=== PATIENT | female | born 1990 | race African-American/Black ===

== ENCOUNTER 2020-03-11 15:53 | Emergency (ER) | payer MEDICAID ==
[~2020-03-11] VITALS: Ht 165.1 cm; Wt 83.0 kg
[2020-03-11 16:01] VITALS: BP 107/69
--- NOTE | 2020-03-11 16:05 | NUR ---
urine cup handed to pt for sample
--- NOTE | 2020-03-11 16:20 | NUR ---
Pt c/o pressure-like lower abdominal pain radiating to bilateral thigh and lower back s/p slipped yesterday walking down carpet stairs at friends house. Reports 5 weeks of ; Denies vag bleeding. LMP 01/31/20 A1. PATIENT STATES PAIN OF 7/10 AT THIS TIME; VSS; PATIENT POSITIONED FOR COMFORT; HOB ELEVATED; BEDRAILS UP X1; BED DOWN. ER MD MADE AWARE OF PT STATUS.
[2020-03-11] MEDS ORDERED: ACETAMINOPHEN 325 MG TAB PO ONE (17:30)
[2020-03-11 17:35] VITALS: BP 105/65
== END 2020-03-11 17:35 | disposition home or self-care (01) ==
LOC: MED 15:53
DX: O26.891 Other specified pregnancy related conditions, first trimester (principal); M54.9 Dorsalgia, unspecified; R10.9 Unspecified abdominal pain; W18.39XA Other fall on same level, initial encounter; Y93.89 Activity, other specified; Y92.89 Other specified places as the place of occurrence of the external cause; Y99.8 Other external cause status
CPT/HCPCS: 76801; 81002; 81025; 93976; 99284; Q0092; 99285

== ENCOUNTER 2021-08-30 12:18 | Emergency (ER) | payer MEDICAID ==
[~2021-08-30] VITALS: Ht 165.1 cm; Wt 94.3 kg
[2021-08-30 12:36] VITALS: BP 123/56
[2021-08-30 13:40] LABS: APPEARANCE,URINE HAZY (CLEAR); BILIRUBIN,URINE NEGATIVE (NEGATIVE); BLOOD, URINE TRACE-L (NEGATIVE); COLOR,URINE YELLOW (YELLOW); LEUKOCYTE ESTERASE ,URINE 1+ (NEGATIVE); NITRITE, URINE NEGATIVE (NEGATIVE); UGLUCOSE NEGATIVE (NEGATIVE)
[2021-08-30 13:54] LABS: RBC,URINE 0-5 /HPF (0-5)
[2021-08-30] MEDS ORDERED: CEPH-588 PO (14:02)
[2021-08-30] MEDS ORDERED: NAPR-54 PO (14:02)
[2021-08-30 14:29] VITALS: BP 123/56
--- NOTE | 2021-08-30 14:29 | NUR ---
Patient discharged with v/s stable. Written and verbal after care instructions given UTI Patient alert, oriented and verbalized understanding of instructions. Ambulatory with steady gait. All questions addressed prior to discharge. ID band removed. Patient advised to follow up with PMD. Rx of KEFLEX, NAPROXEN given. Patient educated on indication of medication including possible reaction and side effects. Opportunity to ask questions provided and answered.
== END 2021-08-30 14:29 | disposition home or self-care (01) ==
LOC: MED 12:18
DX: N39.0 Urinary tract infection, site not specified (principal); Z20.2 Contact with and (suspected) exposure to infections with a predominantly sexual mode of transmission; Z79.899 Other long term (current) drug therapy; Z98.890 Other specified postprocedural states
CPT/HCPCS: 36415; 81001; 86592; 87086; 87491; 99283